=== PATIENT | female | born 1960 | race Caucasian/White ===

== ENCOUNTER 2018-10-30 18:40 | Inpatient (IN) | payer OTHER ==
[2018-10-30 19:35] LABS: Basophils % (A) 1 %; Eosinophils # (A) 0.4 k/uL (0-0.7); Eosinophils % (A) 5 %; HCT 43.9 % (34.0-46.0); HGB 15.3 gm/dL (11.4-16.0); Lymphocytes # (A) 2.6 k/uL (1.0-4.8); Lymphocytes % (A) 37 %; MCH 31.1 pg (25.0-35.0); MCHC 34.8 g/dL (31.0-37.0); MCV 89.2 fL (80.0-100.0); Mean Platelet Volume 6.7; Monocytes # (A) 0.3 k/uL (0-1.0); Monocytes % (A) 4 %; Neutrophils # (A) 3.6 k/uL (1.3-7.7); Neutrophils % (A) 51 %; Platelet Count 236 k/uL (150-450); RBC 4.92 m/uL (3.80-5.40); RDW 13.2 % (11.5-15.5)
[2018-10-30 19:57] LABS: ALT 23 U/L (9-52); AST 26 U/L (14-36); Acetaminophen <10.0 ug/mL; Albumin 4.1 g/dL (3.5-5.0); Alkaline Phosphatase 71 U/L (38-126); Anion Gap 11 mmol/L; Blood Urea Nitrogen 13 mg/dL (7-17); Calcium 9.6 mg/dL (8.4-10.2); Carbon Dioxide 22 mmol/L (22-30); Chloride 109 mmol/L (98-107); Glucose 93 mg/dL (74-99); Potassium 3.7 mmol/L (3.5-5.1); Salicylate <1.0 mg/dL; Sodium 142 mmol/L (137-145); Total Bilirubin 0.4 mg/dL (0.2-1.3)
[2018-10-30 20:18] LABS: Alcohol 136 mg/dL
[2018-10-30 20:39] LABS: Appearance,Urine Clear (Clear); Bilirubin,Urine Negative (Negative); Blood,Urine Moderate (Negative); Color,Urine Colorless; Glucose,Urine (UA) Negative (Negative); Ketones,Urine Negative (Negative); Leukocyte Esterase,Urine Negative (Negative); Nitrite,Urine Negative (Negative); PH, Urine 6.5 (5.0-8.0); Protein,Urine Negative (Negative); RBC,Urine 4 /hpf (0-5); Specific Gravity,Urine 1.002 (1.001-1.035); Squamous Epithelial Cell,Urine <1 /hpf (0-4); Urobilinogen,Urine <2.0 mg/dL (<2.0)
[2018-10-30 21:00] LABS: Amphetamine Screen,Urine Not Detected (NotDetected); Barbiturate Screen,Urine Not Detected (NotDetected); Benzodiazepines Screen,Urine Not Detected (NotDetected); Cocaine Screen,Urine Not Detected (NotDetected); Methadone Screen, Urine Not Detected (NotDetected); Opiate Screen,Urine Not Detected (NotDetected); Oxycodone Screen, Urine Not Detected (NotDetected); Phencyclidine Screen,Urine Not Detected (NotDetected); Tricyclic Antidepressant,Urine Not Detected (NotDetected); Urn Cannabinoid Scrn Not Detected (NotDetected)
--- NOTE | 2018-10-30 21:28 | ED ---
General Adult HPI - General Chief complaint: Altered Mental Status Stated complaint: Suicidal Source: patient, police, EMS Mode of arrival: EMS Limitations: no limitations - History of Present Illness Initial comments: Dictation was produced using linkedFA dictation software. please excuse any grammatical, word or spelling errors. Chief Complaint: 58-year-old female with suicidal ideation. History of Present Illness: A 58-year-old female with past medical history of suicidal ideation and depression presents with suicidal attempt. Consumed 20 tabs of Tylenol PM. She also drank 8 beers. She did take her usual depression medications. She also took some sleeping pills from her friend. Patient unable to provide history at this time because she is very sleepy. Per EMS patient called saying that she attempted suicide. - Related Data Allergies Allergy/AdvReac Type Severity Reaction Status Date / Time No Known Allergies Allergy Verified 10/30/18 19:10 Review of Systems ROS Statement: Those systems with pertinent positive or pertinent negative responses have been documented in the HPI. ROS Other: All systems not noted in ROS Statement are negative. Past Medical History Past Medical History: No Reported History History of Any Multi-Drug Resistant Organisms: None Reported Past Surgical History: No Surgical Hx Reported Past Psychological History: Anxiety, Depression, PTSD Smoking Status: Current every day smoker Past Alcohol Use History: Daily Past Drug Use History: Marijuana General Exam - General Exam Comments Initial Comments: PHYSICAL EXAM: General Impression: Lethargic, slightly uncooperative HEENT: Normocephalic atraumatic, extra-ocular movements intact, pupils equal and reactive to light bilaterally, dry mucous membranes Cardiovascular: Heart regular rate and rhythm, S1&S2 audible, no murmurs, rubs or gallops Chest: Lungs clear to auscultation bilaterally, no rhonchi, no wheeze, no rales Abdomen: Bowel sounds present, abdomen soft, non-tender, non-distended, no organomegaly Musculoskeletal: Pulses present and equal in all extremities, no peripheral edema Motor: Moves all extremities grossly Neurological: CN II-XII grossly intact, no focal motor or sensory deficits noted Skin: Intact with no visualized rashes Limitations: no limitations Course Vital Signs 10/30/18 10/30/18 10/30/18 19:07 19:55 20:07 Temperature 98.7 F Pulse Rate 75 93 96 Respiratory 18 18 16 Rate Blood Pressure 162/92 128/77 161/96 O2 Sat by Pulse 97 98 99 Oximetry Medical Decision Making - Medical Decision Making ED course: 58-year-old female past medical history depression presents after suicidal attempt. Patient took a handful of pills. Allegedly she took Tylenol PM's. Time of ingestion was approximately 30-40 minutes prior to arrival.. However there was a mixture of sleeping pills and depression pills. Signs upon arrival are within acceptable limits. CBC unremarkable. Metabolic panel is unremarkable. Abdominal labs are unremarkable. Urinalysis is negative. There is no salicylates, no Tylenol. Serum alcohol is 136. Rapid urine drug screen is negative. EKGs benign. There is no widened QRS or prolonged QT. Case was discussed with poison control. Recommended lab evaluation, EKG and medical monitoring at this time. They will call back in 2 hours. Repeat Tylenol is ordered. Admitted for toxic overdose. EKG Interpretation: A 12 lead EKG was obtained. It was interpreted by myself and attending physician. There is a P wave before every QRS complex. Rate is normal sinus rhythm. Rhythm is rate of 70, normal sinus rhythm, IN interval 200, QS 96, QTC 449. QT is not prolonged. No ST segment depression or elevation. - Lab Data Result diagrams: 10/30/18 19:20 10/30/18 19:20 Lab Results 10/30/18 10/30/18 10/30/18 Range/Units 19:20 19:20 19:20 WBC 7.0 (3.8-10.6) k/uL RBC 4.92 (3.80-5.40) m/uL Hgb 15.3 (11.4-16.0) gm/dL Hct 43.9 (34.0-46.0) % MCV 89.2 (80.0-100.0) fL MCH 31.1 (25.0-35.0) pg MCHC 34.8 (31.0-37.0) g/dL RDW 13.2 (11.5-15.5) % Plt Count 236 (150-450) k/uL Neutrophils % 51 % Lymphocytes % 37 % Monocytes % 4 % Eosinophils % 5 % Basophils % 1 % Neutrophils # 3.6 (1.3-7.7) k/uL Lymphocytes # 2.6 (1.0-4.8) k/uL Monocytes # 0.3 (0-1.0) k/uL Eosinophils # 0.4 (0-0.7) k/uL Basophils # 0.0 (0-0.2) k/uL Sodium 142 (137-145) mmol/L Potassium 3.7 (3.5-5.1) mmol/L Chloride 109 H (98-107) mmol/L Carbon Dioxide 22 (22-30) mmol/L Anion Gap 11 mmol/L BUN 13 (7-17) mg/dL Creatinine 0.72 (0.52-1.04) mg/dL Est GFR (CKD-EPI)AfAm >90 (>60 ml/min/1.73 sqM) Est GFR (CKD-EPI)NonAf >90 (>60 ml/min/1.73 sqM) Glucose 93 (74-99) mg/dL Calcium 9.6 (8.4-10.2) mg/dL Total Bilirubin 0.4 (0.2-1.3) mg/dL AST 26 (14-36) U/L ALT 23 (9-52) U/L Alkaline Phosphatase 71 (38-126) U/L Creatine Kinase 89 (30-135) U/L Total Protein 7.0 (6.3-8.2) g/dL Albumin 4.1 (3.5-5.0) g/dL Urine Color Urine Appearance (Clear) Urine pH (5.0-8.0) Ur Specific [place] (1.001-1.035) Urine Protein (Negative) Urine Glucose (UA) (Negative) Urine Ketones (Negative) Urine Blood (Negative) Urine Nitrite (Negative) Urine Bilirubin (Negative) Urine Urobilinogen (<2.0) mg/dL Ur Leukocyte Esterase (Negative) Urine RBC (0-5) /hpf Urine WBC (0-5) /hpf Ur Squamous Epith Cells (0-4) /hpf Urine HCG, Qual (Not Detectd) Salicylates <1.0 mg/dL Urine Opiates Screen (NotDetected) Ur Oxycodone Screen (NotDetected) Urine Methadone Screen (NotDetected) Ur Propoxyphene Screen (NotDetected) Acetaminophen <10.0 ug/mL Ur Barbiturates Screen (NotDetected) U Tricyclic Antidepress (NotDetected) Ur Phencyclidine Scrn (NotDetected) Ur Amphetamines Screen (NotDetected) U Methamphetamines Scrn (NotDetected) U Benzodiazepines Scrn (NotDetected) Urine Cocaine Screen (NotDetected) U Marijuana (THC) Screen (NotDetected) Serum Alcohol 136 mg/dL 10/30/18 10/30/18 Range/Units 20:20 20:20 WBC (3.8-10.6) k/uL RBC (3.80-5.40) m/uL Hgb (11.4-16.0) gm/dL Hct (34.0-46.0) % MCV (80.0-100.0) fL MCH (25.0-35.0) pg MCHC (31.0-37.0) g/dL RDW (11.5-15.5) % Plt Count (150-450) k/uL Neutrophils % % Lymphocytes % % Monocytes % % Eosinophils % % Basophils % % Neutrophils # (1.3-7.7) k/uL Lymphocytes # (1.0-4.8) k/uL Monocytes # (0-1.0) k/uL Eosinophils # (0-0.7) k/uL Basophils # (0-0.2) k/uL Sodium (137-145) mmol/L Potassium (3.5-5.1) mmol/L Chloride (98-107) mmol/L Carbon Dioxide (22-30) mmol/L Anion Gap mmol/L BUN (7-17) mg/dL Creatinine (0.52-1.04) mg/dL Est GFR (CKD-EPI)AfAm (>60 ml/min/1.73 sqM) Est GFR (CKD-EPI)NonAf (>60 ml/min/1.73 sqM) Glucose (74-99) mg/dL Calcium (8.4-10.2) mg/dL Total Bilirubin (0.2-1.3) mg/dL AST (14-36) U/L ALT (9-52) U/L Alkaline Phosphatase (38-126) U/L Creatine Kinase (30-135) U/L Total Protein (6.3-8.2) g/dL Albumin (3.5-5.0) g/dL Urine Color Colorless Urine Appearance Clear (Clear) Urine pH 6.5 (5.0-8.0) Ur Specific [place] 1.002 (1.001-1.035) Urine Protein Negative (Negative) Urine Glucose (UA) Negative (Negative) Urine Ketones Negative (Negative) Urine Blood Moderate H (Negative) Urine Nitrite Negative (Negative) Urine Bilirubin Negative (Negative) Urine Urobilinogen <2.0 (<2.0) mg/dL Ur Leukocyte Esterase Negative (Negative) Urine RBC 4 (0-5) /hpf Urine WBC 1 (0-5) /hpf Ur Squamous Epith Cells <1 (0-4) /hpf Urine HCG, Qual Not Detected (Not Detectd) Salicylates mg/dL Urine Opiates Screen Not Detected (NotDetected) Ur Oxycodone Screen Not Detected (NotDetected) Urine Methadone Screen Not Detected (NotDetected) Ur Propoxyphene Screen Not Detected (NotDetected) Acetaminophen ug/mL Ur Barbiturates Screen Not Detected (NotDetected) U Tricyclic Antidepress Not Detected (NotDetected) Ur Phencyclidine Scrn Not Detected (NotDetected) Ur Amphetamines Screen Not Detected (NotDetected) U Methamphetamines Scrn Not Detected (NotDetected) U Benzodiazepines Scrn Not Detected (NotDetected) Urine Cocaine Screen Not Detected (NotDetected) U Marijuana (THC) Screen Not Detected (NotDetected) Serum Alcohol mg/dL Disposition Clinical Impression: Overdose [facility] Condition: Fair Referrals: None,Stated [Primary Care Provider] - 1-2 days Decision Time: 21:37
[2018-10-30] MEDS ORDERED: NALOXONE 0.4 MG/ML 1 ML VIAL IV PRN (21:32)
[2018-10-30] MEDS ORDERED: SODIUM CHLORIDE 0.9% 1,000 ML IV STA (21:35)
--- NOTE | 2018-10-31 15:35 | P.HPIM ---
History of Present Illness 58-year-old the female admitted with suicidal attempt and and consumed 20 tablets of Tylenol PM and Tylenol level on admission was less than 10 few hours after the consumption. Patient is awake alert patient also drinks beers on daily basis does smoke. Patient refuses nausea vomiting abdominal pain patient is still left severely depressed but denied any more suicidal ideations. Patient is willing to go to psychiatric floor voluntarily Review of Systems REVIEW OF SYSTEMS: CONSTITUTIONAL: No fever, no malaise, no fatigue. HEENT: No recent visual problems or hearing problems. Denied any sore throat. CARDIOVASCULAR: No chest pain, orthopnea, PND, no palpitations, no syncope. PULMONARY: No shortness of breath, no cough, no hemoptysis. GASTROINTESTINAL: No diarrhea, no nausea, no vomiting, no abdominal pain. Normoactive bowel sounds. NEUROLOGICAL: No headaches, no weakness, no numbness. HEMATOLOGICAL: Denies any bleeding or petechiae. GENITOURINARY: Denies any burning micturition, frequency, or urgency. MUSCULOSKELETAL/RHEUMATOLOGICAL: Denies any joint pain, swelling, or any muscle pain. ENDOCRINE: Denies any polyuria or polydipsia. The rest of the 14-point review of systems is negative. Past Medical History Past Medical History: No Reported History History of Any Multi-Drug Resistant Organisms: None Reported Past Surgical History: Back Surgery Past Anesthesia/Blood Transfusion Reactions: No Reported Reaction Past Psychological History: Anxiety, Depression, PTSD Smoking Status: Current every day smoker Past Alcohol Use History: Daily - Past Family History Mother History Unknown: Yes Additional Family Medical History / Comment(s): pt states she was adopted Daughter(s) Family Medical History: No Reported History Medications and Allergies Home Medications Medication Instructions Recorded Confirmed Type Atorvastatin [Lipitor] 20 mg PO HS 10/31/18 10/31/18 History Brexpiprazole [Rexulti] 0.5 mg PO DAILY 10/31/18 10/31/18 History Meloxicam [Mobic] 15 mg PO DAILY 10/31/18 10/31/18 History PARoxetine HCL [Paxil] 30 mg PO DAILY 10/31/18 10/31/18 History Allergies Allergy/AdvReac Type Severity Reaction Status Date / Time No Known Allergies Allergy Verified 10/31/18 10:18 Physical Exam Vitals: Vital Signs Temp Pulse Pulse Resp BP BP Pulse Ox 10/31/18 14:32 97.7 F 63 16 150/74 96 10/31/18 09:22 98.7 F 60 16 134/77 95 10/30/18 23:00 97.9 F 84 16 157/103 97 10/30/18 22:55 98.4 F 78 18 107/49 97 10/30/18 21:46 88 18 142/99 99 10/30/18 20:07 96 16 161/96 99 10/30/18 19:55 93 18 128/77 98 10/30/18 19:07 98.7 F 75 18 162/92 97 Intake and Output 10/31/18 10/31/18 10/31/18 06:59 14:59 22:59 Other: # Voids 1 3 # Bowel Movements 4 PHYSICAL EXAMINATION: GENERAL: The patient is alert and oriented x3, not in any acute distress. Well developed, well nourished. HEENT: Pupils are round and equally reacting to light. EOMI. No scleral icterus. No conjunctival pallor. Normocephalic, atraumatic. No pharyngeal erythema. No thyromegaly. CARDIOVASCULAR: S1 and S2 present. No murmurs, rubs, or gallops. PULMONARY: Chest is clear to auscultation, no wheezing or crackles. ABDOMEN: Soft, nontender, nondistended, normoactive bowel sounds. No palpable organomegaly. MUSCULOSKELETAL: No joint swelling or deformity. EXTREMITIES: No cyanosis, clubbing, or pedal edema. NEUROLOGICAL: Gross neurological examination did not reveal any focal deficits. SKIN: No rashes. Results CBC & Chem 7: 10/30/18 19:20 10/30/18 19:20 Labs: Abnormal Lab Results - Last 24 Hours (Table) 10/30/18 10/30/18 Range/Units 19:20 20:20 Chloride 109 H (98-107) mmol/L Urine Blood Moderate H (Negative) Thrombosis Risk Factor Assmnt - Choose All That Apply Any of the Below Risk Factors Present?: Yes Each Factor Represents 1 point: Age 41-60 years, Obesity (BMI >25) Other Risk Factors: No Thrombosis Risk Factor Assessment Total Risk Factor Score: 2 Thrombosis Risk Factor Assessment Level: Low Risk Assessment and Plan Plan: Severe depression and suicide attempt: Patient has one-on-one sitter patient is willing to go to psychiatric floor voluntarily. -Tylenol overdose: Patient levels are significantly low with a normal liver enzymes no further testing is necessary at this time and patient is medically stable to be discharged to psychiatric floor. Patient will not require any is a acetylcystine at this time -Nicotine abuse, marijuana use and alcohol abuse: Counseling was provided .
[2018-10-31] MEDS ORDERED: ACETAMINOPHEN TAB 325 MG TAB PO STA (18:59)
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
[2018-11-01 08:34] LABS: ALT 27 U/L (9-52); AST 19 U/L (14-36); Albumin 3.5 g/dL (3.5-5.0); Alkaline Phosphatase 59 U/L (38-126); Anion Gap 5 mmol/L; Blood Urea Nitrogen 12 mg/dL (7-17); Calcium 9.1 mg/dL (8.4-10.2); Carbon Dioxide 24 mmol/L (22-30); Chloride 110 mmol/L (98-107); Glucose 82 mg/dL (74-99); Potassium 3.5 mmol/L (3.5-5.1); Sodium 139 mmol/L (137-145); Total Bilirubin 0.7 mg/dL (0.2-1.3); Total Protein 6.2 g/dL (6.3-8.2)
[2018-11-01] MEDS: THIAMINE 100 MG TAB PO SCH (11:57)
--- NOTE | 2018-11-01 13:39 | P.DS ---
Providers Date of admission: 10/30/18 21:37 Attending physician: Orlando Gaston Consults: 10/31/18 00:11 Consult Physician Routine Consulting Provider: Skyler Nice Consult Reason/Comments: suicide attempt Do you want consulting provider notified?: Yes, Notify in am Primary care physician: Stated None Hospital Course: Patient is admitted for suicide attempt on Tylenol PM. Patient is clinically doing well medically cleared to be discharged to psychiatric floor. PHYSICAL EXAMINATION: GENERAL: The patient is alert and oriented x3, not in any acute distress. Well developed, well nourished. HEENT: Pupils are round and equally reacting to light. EOMI. No scleral icterus. No conjunctival pallor. Normocephalic, atraumatic. No pharyngeal erythema. No thyromegaly. CARDIOVASCULAR: S1 and S2 present. No murmurs, rubs, or gallops. PULMONARY: Chest is clear to auscultation, no wheezing or crackles. ABDOMEN: Soft, nontender, nondistended, normoactive bowel sounds. No palpable organomegaly. MUSCULOSKELETAL: No joint swelling or deformity. EXTREMITIES: No cyanosis, clubbing, or pedal edema. NEUROLOGICAL: Gross neurological examination did not reveal any focal deficits. SKIN: No rashes. Assessment and Plan Plan: Severe depression and suicide attempt: Patient has one-on-one sitter patient is willing to go to psychiatric floor voluntarily. -Tylenol overdose: Patient levels are significantly low with a normal liver enzymes no further testing is necessary at this time and patient is medically stable to be discharged to psychiatric floor. Patient will not require any is a acetylcystine at this time -Nicotine abuse, marijuana use and alcohol abuse: Counseling was provided . Patient Condition at Discharge: Fair Plan - Discharge Summary New Discharge Prescriptions: No Action Meloxicam [Mobic] 15 mg PO DAILY Brexpiprazole [Rexulti] 0.5 mg PO DAILY Atorvastatin [Lipitor] 20 mg PO HS PARoxetine HCL [Paxil] 30 mg PO DAILY Discharge Medication List Atorvastatin [Lipitor] 20 mg PO HS 10/31/18 [History] Brexpiprazole [Rexulti] 0.5 mg PO DAILY 10/31/18 [History] Meloxicam [Mobic] 15 mg PO DAILY 10/31/18 [History] PARoxetine HCL [Paxil] 30 mg PO DAILY 10/31/18 [History] Follow up Appointment(s)/Referral(s): None,Stated [Primary Care Provider] - 1-2 days Activity/Diet/Wound Care/Special Instructions: Home meds in pharmacy, need to warehouse order picker ([facility]) Discharge Disposition: TRANSFER TO PSYCH HOSP/UNIT
[2018-11-01] MEDS: PARoxetine 10 MG TAB PO SCH (21:55)
[2018-11-01] MEDS: ATORVASTATIN 20 MG TAB PO SCH (21:55)
[2018-11-02] MEDS: PARoxetine 10 MG TAB PO SCH (08:19)
[2018-11-02] MEDS: MELOXICAM 7.5 MG TAB PO SCH (08:19)
[2018-11-02] MEDS: THIAMINE 100 MG TAB PO SCH (12:19)
--- NOTE | 2018-11-02 17:51 | P.PN ---
Subjective Progress Note Date: 11/02/18 Progress note being dictated for Dr. Adan. Interval history: This is a 58-year-old female admitted with severe depression, suicide attempt multiple other medical issues. Patient initially was on suicide precautions with one-to-one sitter. Evaluated by a psychiatrist and suicide precautions /sitter discontinued. Awaiting opening on inpatient psych unit. Medically cleared for transfer. Reports extremely unhappy, cries herself to sleep every night. Denies homicidal thoughts, denies intentions to harm self , denies a suicidal plan at this time. Good diet intake. Normal LFTs 11/01. Objective - Vital Signs Vital signs: Vital Signs Temp 98.1 F 11/02/18 14:22 Pulse 65 11/02/18 14:22 Resp 16 11/02/18 14:22 BP 148/90 11/02/18 14:22 Pulse Ox 97 11/02/18 14:22 Intake & Output 11/01/18 11/02/18 11/02/18 18:59 06:59 18:59 Intake Total 653 459 1206 Balance 891 801 7517 Weight 72.575 kg 72.575 kg Intake: Oral [phone] Other: Voiding Method Toilet Toilet Toilet # Voids 1 2 - Exam PHYSICAL EXAMINATION: GENERAL: The patient is sitting up in bed, alert and oriented x3, no acute distress. Cries easily. HEENT: Pupils are round and equally reacting to light. EOMI. No scleral icterus. No conjunctival pallor. Normocephalic, atraumatic. CARDIOVASCULAR: S1 and S2 present. No murmurs, rubs, or gallops. PULMONARY: Chest is clear to auscultation, no wheezing or crackles. ABDOMEN: Soft, nontender, nondistended, normoactive bowel sounds. No palpable organomegaly. MUSCULOSKELETAL: No joint swelling or deformity. EXTREMITIES: No cyanosis, clubbing, or pedal edema. NEUROLOGICAL: Gross neurological examination did not reveal any focal deficits. SKIN: No rashes. - Labs CBC & Chem 7: 10/30/18 19:20 11/01/18 07:17 Assessment and Plan Assessment: -Severe depression,suicide attempt with Tylenol overdose. Normal LFTs -Nicotine abuse, marijuana use, alcohol abuse Plan: Continue on current medication regime ,monitoring and symptomatic treatment. Evaluated by psychiatry, recommending inpatient mental health unit. Suicide precautions/sitter have been discontinued as per psychiatry. Awaiting transfer to inpatient psych unit. Polysubstance abuse cessation rediscussed. Counseling provided. The impression and plan of care has been dictated as directed. : I performed a history and examination of this patient, discussed the same with the dictator. I agree with the dictator's note ,documented as a scribe. Any additional findings or plans will be noted.
[2018-11-02] MEDS: ATORVASTATIN 20 MG TAB PO SCH (22:02)
[2018-11-03 01:47] VITALS: RESP 16; TEMP 97.9
[2018-11-03 07:12] VITALS: BP 163/72; PULSE 71
[2018-11-03] MEDS: PARoxetine 10 MG TAB PO SCH (09:31)
[2018-11-03] MEDS: MELOXICAM 7.5 MG TAB PO SCH (09:31)
[2018-11-03] MEDS ORDERED: LORATADINE 10 MG TAB PO SCH (11:00)
--- NOTE | 2018-11-03 11:07 | P.DS ---
Providers Date of admission: 10/30/18 21:37 Expected date of discharge: 11/03/18 Attending physician: Orlando Adan Consults: 10/31/18 00:11 Consult Physician Routine Consulting Provider: Skyler Nice Consult Reason/Comments: suicide attempt Do you want consulting provider notified?: Yes, Notify in am 11/02/18 17:37 Consult Physician Routine Consulting Provider: Skyler Nice Consult Reason/Comments: Suicidal ideation, no plan Do you want consulting provider notified?: Already Contacted Primary care physician: Stated None Hospital Course: Final Diagnoses: -Severe depression,suicide attempt with Tylenol overdose. Normal LFTs -Nicotine abuse, marijuana use, alcohol abuse Hospital Course:This is a 58-year-old female admitted with severe depression, suicide attempt multiple other medical issues. Patient initially was on suicide precautions with one-to-one sitter. Evaluated by a psychiatrist and suicide precautions /sitter discontinued. Awaiting opening on inpatient psych unit. Medically cleared for transfer. Reports extremely unhappy, cries herself to sleep every night. Denies homicidal thoughts, denies intentions to harm self , denies a suicidal plan at this time. Good diet intake. Normal LFTs 11/01. VSS, No overnight events.Patient eager to being her rehab. Denies Suicidal ideation at this time.Patient being discharged today to [facility]HU, in a stable condition with guarded prognosis. EXAMINATION: GENERAL: The patient is sitting up in bed, alert and oriented x3, no acute distress. HEENT: Pupils are round and equally reacting to light. EOMI. No scleral icterus. No conjunctival pallor. Normocephalic, atraumatic. CARDIOVASCULAR: S1 and S2 present. No murmurs, rubs, or gallops. PULMONARY: Chest is clear to auscultation, no wheezing or crackles. ABDOMEN: Soft, nontender, nondistended, normoactive bowel sounds. No palpable organomegaly. MUSCULOSKELETAL: No joint swelling or deformity. EXTREMITIES: No cyanosis, clubbing, or pedal edema. NEUROLOGICAL: Gross neurological examination did not reveal any focal deficits. SKIN: No rashes. The impression and plan of care has been dictated as directed. : I performed a history and examination of this patient, discussed the same with the dictator. I agree with the dictator's note ,documented as a scribe. Any additional findings or plans will be noted. Time taken: 35 min Patient Condition at Discharge: Stable Plan - Discharge Summary New Discharge Prescriptions: New Loratadine [Claritin] 10 mg PO DAILY tab Thiamine [Vitamin B-1] 100 mg PO DAILY@1200 tab Continue Meloxicam [Mobic] 15 mg PO DAILY Atorvastatin [Lipitor] 20 mg PO HS PARoxetine HCL [Paxil] 30 mg PO DAILY No Action Brexpiprazole [Rexulti] 0.5 mg PO DAILY Discharge Medication List Atorvastatin [Lipitor] 20 mg PO HS 10/31/18 [History] Brexpiprazole [Rexulti] 0.5 mg PO DAILY 10/31/18 [History] Meloxicam [Mobic] 15 mg PO DAILY 10/31/18 [History] PARoxetine HCL [Paxil] 30 mg PO DAILY 10/31/18 [History] Loratadine [Claritin] 10 mg PO DAILY tab 11/03/18 [Rx] Thiamine [Vitamin B-1] 100 mg PO DAILY@1200 tab 11/03/18 [Rx] Follow up Appointment(s)/Referral(s): None,Stated [Primary Care Provider] - 1-2 days Activity/Diet/Wound Care/Special Instructions: Home meds in pharmacy, need to grape picker (Paxil) Discharge Disposition: TRANSFER TO PSYCH HOSP/UNIT
[2018-11-03] MEDS: THIAMINE 100 MG TAB PO SCH (13:55)
== END 2018-11-03 20:40 | DRG 918 ==
LOC: EC 18:40 → 4SSUR 21:37
PROVIDERS: ADMIT Hospitalist; ATTEND Hospitalist
DX: T39.1X2A Poisoning by 4-Aminophenol derivatives, intentional self-harm, initial encounter (principal); F10.10 Alcohol abuse, uncomplicated; F17.200 Nicotine dependence, unspecified, uncomplicated; F32.9 Major depressive disorder, single episode, unspecified; F43.10 Post-traumatic stress disorder, unspecified; Z79.1 Long term (current) use of non-steroidal anti-inflammatories (NSAID); Z79.899 Other long term (current) drug therapy
CPT/HCPCS: 36415; 51701; 80053; 80306; 80320; 81001; 81025; 82550; 83520; 85025; 93005; 94760; 99285

== ENCOUNTER 2018-11-03 18:51 | Inpatient (IN) | payer MEDICAID, OTHER ==
[2018-11-03] MEDS ORDERED: MAG HYDROX/AL HYDROX/SIMETH 30 ML CUP PO PRN (21:40)
[2018-11-03] MEDS ORDERED: LORazepam 1 MG TAB PO PRN (21:40)
[2018-11-03] MEDS ORDERED: ACETAMINOPHEN TAB 325 MG TAB PO PRN (21:40)
[2018-11-03] MEDS ORDERED: MAGNESIUM HYDROXIDE 2,400 MG/10 ML CUP PO PRN (21:46)
[2018-11-03] MEDS: ATORVASTATIN 20 MG TAB PO SCH (22:13)
[2018-11-04] MEDS: LORATADINE 10 MG TAB PO SCH (08:26)
[2018-11-04] MEDS ORDERED: MELOXICAM 7.5 MG TAB PO SCH (09:00)
[2018-11-04] MEDS ORDERED: PARoxetine 10 MG TAB PO SCH (09:00)
[2018-11-04] MEDS ORDERED: BREXPIPRAZOLE 0.5 MG PO SCH (09:00)
[2018-11-04] MEDS: THIAMINE 100 MG TAB PO SCH (11:58)
--- NOTE | 2018-11-04 15:11 | P.CONS ---
History of Present Illness - Reason for Consult Medical clearance - History of Present Illness 68-year-old female admitted for Tylenol overdose to my service was subsequently discharged to psychiatric floor patient is complaining of pain on the dorsal aspect of the second toe tarsometatarsal area probably mild tendinitis recommended using ice be under patient denied any other symptoms Review of Systems REVIEW OF SYSTEMS: CONSTITUTIONAL: No fever, no malaise, no fatigue. HEENT: No recent visual problems or hearing problems. Denied any sore throat. CARDIOVASCULAR: No chest pain, orthopnea, PND, no palpitations, no syncope. PULMONARY: No shortness of breath, no cough, no hemoptysis. GASTROINTESTINAL: No diarrhea, no nausea, no vomiting, no abdominal pain. Normoactive bowel sounds. NEUROLOGICAL: No headaches, no weakness, no numbness. HEMATOLOGICAL: Denies any bleeding or petechiae. GENITOURINARY: Denies any burning micturition, frequency, or urgency. MUSCULOSKELETAL/RHEUMATOLOGICAL: Denies any joint pain, swelling, or any muscle pain. ENDOCRINE: Denies any polyuria or polydipsia. The rest of the 14-point review of systems is negative. Past Medical History Past Medical History: No Reported History History of Any Multi-Drug Resistant Organisms: None Reported Past Surgical History: Back Surgery Past Anesthesia/Blood Transfusion Reactions: No Reported Reaction Past Psychological History: Anxiety, Depression, PTSD Smoking Status: Current every day smoker Past Alcohol Use History: Daily - Past Family History Mother History Unknown: Yes Additional Family Medical History / Comment(s): pt states she was adopted Daughter(s) Family Medical History: No Reported History Medications and Allergies Home Medications Medication Instructions Recorded Confirmed Type Atorvastatin [Lipitor] 20 mg PO HS 10/31/18 11/03/18 History Brexpiprazole [Rexulti] 0.5 mg PO DAILY 10/31/18 11/03/18 History Meloxicam [Mobic] 15 mg PO DAILY 10/31/18 11/03/18 History PARoxetine HCL [Paxil] 30 mg PO DAILY 10/31/18 11/03/18 History Loratadine [Claritin] 10 mg PO DAILY tab 11/03/18 11/03/18 Rx Thiamine [Vitamin B-1] 100 mg PO DAILY@1200 tab 11/03/18 11/03/18 Rx Allergies Allergy/AdvReac Type Severity Reaction Status Date / Time No Known Allergies Allergy Verified 11/03/18 21:32 Physical Exam Vitals: Vital Signs Temp Pulse Resp BP Pulse Ox 11/03/18 21:39 96.9 F L 62 16 153/79 98 PHYSICAL EXAMINATION: GENERAL: The patient is alert and oriented x3, not in any acute distress. Well developed, well nourished. HEENT: Pupils are round and equally reacting to light. EOMI. No scleral icterus. No conjunctival pallor. Normocephalic, atraumatic. No pharyngeal erythema. No thyromegaly. CARDIOVASCULAR: S1 and S2 present. No murmurs, rubs, or gallops. PULMONARY: Chest is clear to auscultation, no wheezing or crackles. ABDOMEN: Soft, nontender, nondistended, normoactive bowel sounds. No palpable organomegaly. MUSCULOSKELETAL: No joint swelling or deformity. EXTREMITIES: No cyanosis, clubbing, or pedal edema. NEUROLOGICAL: Gross neurological examination did not reveal any focal deficits. SKIN: No rashes. Assessment and Plan Plan: Severe depression: Management as per primary service patient had recent suicidal ideation -Nicotine, marijuana abuse along with nicotine use: Counseling was provided
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
[2018-11-04 19:43] LABS: Hemoglobin A1C 4.7 % (4.0-6.0)
[2018-11-04] MEDS ORDERED: PALIPERIDONE 3 MG TAB.ER.24 PO SCH (21:00)
[2018-11-04] MEDS ORDERED: lamoTRIgine 25 MG TAB PO SCH (21:00)
[2018-11-04] MEDS: ATORVASTATIN 20 MG TAB PO SCH (21:16)
[2018-11-05] MEDS: LORATADINE 10 MG TAB PO SCH (08:09)
[2018-11-05] MEDS: THIAMINE 100 MG TAB PO SCH (11:59)
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
[2018-11-05] MEDS: DICLOFENAC SODIUM GEL 100 GM TUBE TOPICAL SCH ×3 (13:27→21:44)
[2018-11-05] MEDS ORDERED: lamoTRIgine 25 MG TAB PO SCH (21:00)
[2018-11-05] MEDS: guaiFENesin 600 MG TABLET.ER PO SCH (21:44)
[2018-11-05] MEDS: PALIPERIDONE 6 MG TAB.ER.24 PO SCH (21:44)
[2018-11-05] MEDS: ATORVASTATIN 20 MG TAB PO SCH (21:44)
[2018-11-06 07:04] VITALS: RESP 16
--- NOTE | 2018-11-06 08:20 | P.PN ---
Progress Note - Text Interval history: The patient is found in her room she follows me to an interview room. The patient is currently diagnosed with bipolar disorder she was admitted after a suicide attempt with sleeping medication. She was transferred from the medical floor to our unit. She is currently on an invega and Lamictal. She indicates that her mood is okay today. She has no questions or concerns regarding her psychotropic medication. She indicates he sleeping at night staff recorded she slept 6 hours. Appetite is stable. She reports she is attending most groups. Mental status exam: The patient is alert she has adequate hygiene her appearance is disheveled. Eye contact is intermittent. Speech is fluent and spontaneous nonpressured. She is cooperative throughout the session. She is reporting no current suicidal ideation intent or plan no homicidal ideation intent or plan. She is reporting no symptoms of psychosis. She does not present hypomanic or manic at this time. Thought process is linear she demonstrates no tangential thinking loose associations or flight of ideas. She demonstrates no involuntary repetitive movements. She demonstrates no verbal or physical aggressiveness. Insight and judgment beginning to improve. She is oriented to person place and date. Plan: The patient will continue on her current psychotropic medications. Vital signs are reviewed. We will continue monitoring her for safety and we encourage her continued participation in the milieu.
[2018-11-06] MEDS: THIAMINE 100 MG TAB PO SCH (08:32)
[2018-11-06] MEDS: LORATADINE 10 MG TAB PO SCH (08:32)
[2018-11-06] MEDS: guaiFENesin 600 MG TABLET.ER PO SCH ×2 (08:32→21:07)
[2018-11-06] MEDS: DICLOFENAC SODIUM GEL 100 GM TUBE TOPICAL SCH ×4 (08:33→21:07)
[2018-11-06] MEDS: lamoTRIgine 25 MG TAB PO SCH (21:07)
[2018-11-06] MEDS: ATORVASTATIN 20 MG TAB PO SCH (21:07)
[2018-11-06] MEDS: PALIPERIDONE 6 MG TAB.ER.24 PO SCH (21:07)
--- NOTE | 2018-11-07 08:19 | P.PN ---
Progress Note - Text Interval history: The patient is found in her room she follows me to an interview room. She states that she slept most of the day yesterday and wonders if it's related to her medication. She states that she slept until about 1 PM. She did get up briefly for breakfast and return to bed. She found herself tearful throughout the day not knowing why she was crying. She felt at times nobody cared that she was here. She is hoping that she will be able to stay out of bed throughout the day today. We discussed that she may need some time to acclimate to the invega, but dosage may need to be decreased or the medication may need to be changed. We agreed that we would follow how she does today before deciding. Mental status exam: The patient is alert she is dressed in her own clothing hygiene grooming are adequate. Eye contact is appropriate speech is fluent her affect is fairly [place] at the beginning of our interaction but she becomes more expressive as the session progresses. She indicates her mood is been down she was tearful yesterday. She is reporting no suicidal or homicidal thoughts that she feels safe here. She is endorsing no auditory or visual hallucinations or any specific delusions. She demonstrates no tangential thinking loose associations or flight of ideas. She does not appear hypomanic or manic. She remains oriented to person place and date. She demonstrates no involuntary repetitive movements. She demonstrates no verbal or physical aggressiveness. Plan: The patient will continue on her current psychotropic medication. She has a concern that she is excessively sedated. We discussed that the invega may be contributing. She is encouraged to put forth her best effort and attending groups this morning and throughout the day. Vital signs reviewed. We will continue to monitor her for safety.
[2018-11-07] MEDS: LORATADINE 10 MG TAB PO SCH (08:37)
[2018-11-07] MEDS: guaiFENesin 600 MG TABLET.ER PO SCH ×2 (08:37→21:31)
[2018-11-07] MEDS: DICLOFENAC SODIUM GEL 100 GM TUBE TOPICAL SCH ×4 (08:38→21:31)
[2018-11-07] MEDS: THIAMINE 100 MG TAB PO SCH (14:38)
[2018-11-07] MEDS: ATORVASTATIN 20 MG TAB PO SCH (21:31)
[2018-11-07] MEDS: lamoTRIgine 25 MG TAB PO SCH (21:31)
[2018-11-07] MEDS: PALIPERIDONE 6 MG TAB.ER.24 PO SCH (21:41)
[2018-11-08 07:04] VITALS: BP 95/48; PULSE 61; TEMP 98.1
[2018-11-08] MEDS: DICLOFENAC SODIUM GEL 100 GM TUBE TOPICAL SCH ×3 (07:48→16:10)
[2018-11-08] MEDS: guaiFENesin 600 MG TABLET.ER PO SCH (07:51)
[2018-11-08] MEDS: LORATADINE 10 MG TAB PO SCH (07:51)
[2018-11-08] MEDS: THIAMINE 100 MG TAB PO SCH (11:44)
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
[2018-11-08] MEDS ORDERED: lamoTRIgine 100 MG TAB PO SCH (21:00)
== END 2018-11-08 17:14 | disposition home or self-care (01) | DRG 885 ==
LOC: 3MHU 20:49
PROVIDERS: ADMIT Psychiatry & Neurology Psychiatry; ATTEND Psychiatry & Neurology Psychiatry
DX: F31.30 Bipolar disorder, current episode depressed, mild or moderate severity, unspecified (principal); R45.851 Suicidal ideations; F17.200 Nicotine dependence, unspecified, uncomplicated; F43.10 Post-traumatic stress disorder, unspecified; F41.9 Anxiety disorder, unspecified; G47.00 Insomnia, unspecified; M77.9 Enthesopathy, unspecified; Z91.19 Patient's noncompliance with other medical treatment and regimen; Z79.1 Long term (current) use of non-steroidal anti-inflammatories (NSAID); Z79.899 Other long term (current) drug therapy; Z59.0 Homelessness; Z91.5 Personal history of self-harm
CPT/HCPCS: 83036; 84443